=== PATIENT | female | born 1980 | race Caucasian/White ===

== ENCOUNTER → 2016-11-17 | Outpatient (CLI) | payer OTHER ==
[~2016-11-17] MED LIST: ASPIRIN E.C. 8181 MG PO; D-1000 185 MG-11 TAB PO; HCTZ 25MG25 MG PO; LISINOPRIL10 MG PO; MACROBID 100 M100 MG PO; POTASSIUM CH2 MEQ/ML; SYNTHROID0.15 MG PO; TOPAMAX25 MG PO; VENLAFAXINE HYD25 MG PO
== END ==
LOC: LAB 12:28
DX: R07.9 Chest pain, unspecified (principal)

== ENCOUNTER 2016-12-13 20:56 | Emergency (ER) | payer OTHER ==
[~2016-12-13 20:56] MED LIST changes: -MACROBID 100 M100 MG PO
[2016-12-14] MEDS ORDERED: MACROBID 100 M100 MG PO (07:16)
== END 2016-12-14 07:39 | disposition home or self-care (01) ==
LOC: ED 20:56
DX: E87.6 Hypokalemia (principal); E86.0 Dehydration; R55 Syncope and collapse; N39.0 Urinary tract infection, site not specified
CPT/HCPCS: J7030

== ENCOUNTER → 2016-12-15 | Outpatient (CLI) | payer OTHER ==
[~2016-12-15] MED LIST changes: +MACROBID 100 M100 MG PO
== END ==
LOC: LAB 08:53
DX: E87.6 Hypokalemia (principal)

== ENCOUNTER → 2017-02-08 | Outpatient (CLI) | payer OTHER ==
[2016-12-14 07:22] VITALS: BP 110/65
== END ==
LOC: LAB 18:20
DX: K65.1 Peritoneal abscess (principal)

== ENCOUNTER 2018-01-23 15:00 | Outpatient (RCR) | payer OTHER ==
[2016-12-14 07:22] VITALS: BP 110/65
== END 2018-04-04 | disposition home or self-care (01) ==
LOC: PT
DX: M25.562 Pain in left knee (principal); S80.02XD Contusion of left knee, subsequent encounter; W01.0XXD Fall on same level from slipping, tripping and stumbling without subsequent striking against object, subsequent encounter

== ENCOUNTER → 2019-01-27 | Outpatient (CLI) | payer BC ==
[2016-12-14 07:22] VITALS: BP 110/65
[2019-01-27 15:08] LABS: D-DIMER 0.37 mg/L FEU (0.15-0.50)
== END ==
LOC: LAB 14:29
PROVIDERS: Family Medicine
DX: R07.9 Chest pain, unspecified (principal)

== ENCOUNTER 2019-09-03 16:49 | Emergency (ER) | payer BC ==
[~2019-09-03] VITALS: Wt 143.1 kg
[~2019-09-03 16:49] MED LIST changes: -D-1000 185 MG-11 TAB PO; -POTASSIUM CH2 MEQ/ML; +POTASSIUM CH2 MEQ/ML PO; -SYNTHROID0.15 MG PO; +SYNTHROID175 MCG PO; -TOPAMAX25 MG PO; +TOPAMAX50 M1 PO; +VITAMIN D50000 UNIT PO
[2019-09-03] MEDS ORDERED: DULOXETINE60 MG PO (17:02)
[2019-09-03] MEDS ORDERED: LATANOPROST 2.2.5 ML OD (17:03)
[2019-09-03] MEDS ORDERED: REMERON15 MG PO (17:03)
[2019-09-03] MEDS ORDERED: RESTORIL30 M1 PO (17:04)
[2019-09-03] MEDS ORDERED: LAMOTRIGINE25 M1 PO (17:05)
[2019-09-03] MEDS ORDERED: BUTALBITAL, ACE1 TA1 PO (17:06)
[2019-09-03] MEDS ORDERED: RT ALBUTEROL CC18 GM IH (17:08)
[2019-09-03] MEDS ORDERED: MECLIZINE PO (17:08)
[2019-09-03 17:56] LABS: BASO # 0.1 (0.02-0.10); EOS # 0.5 (0.04-0.40); EOS % 5.5 % (1.0-5.0); HEMATOCRIT 39.5 % (37.0-47.0); HEMOGLOBIN 13.3 g/dL (12.5-16.0); LYMPH# 2.8 (1.50-4.00); MEAN CELL VOLUME 90 fl (78-100); MEAN CORPUSCULAR HEMOGLOBIN 30 pg (27-31); MEAN CORPUSCULAR HGB CONC 34 g/dL (33-37); MEAN PLATELET VOLUME 9.9 fl (7.4-10.4); MONO # 0.6 (0.20-0.80); NEU # 4.9 (1.40-6.50); PLATELET COUNT 208 K/mm3 (130-400); RED BLOOD COUNT 4.37 M/mm3 (4.10-5.30); RED CELL DISTRIBUTION WIDTH 14.9 % (11.5-14.5); WHITE BLOOD COUNT 8.9 K/mm3 (4.8-10.8)
[2019-09-03 18:05] LABS: ALBUMIN 3.9 g/dL (3.5-5.0); POTASSIUM 3.7 mmol/L (3.5-5.1); SODIUM 137 mmol/L (136-145)
[2019-09-03 18:06] LABS: CALCIUM 9.3 mg/dL (8.3-10.5)
[2019-09-03 18:07] LABS: GLUCOSE 150 mg/dL (65-105)
[2019-09-03 18:08] LABS: TOTAL PROTEIN 6.9 g/dL (6.4-8.3)
[2019-09-03 18:09] LABS: CARBON DIOXIDE 24 mmol/L (22-29); TOTAL BILIRUBIN 0.4 mg/dL (0.2-1.2)
[2019-09-03 18:13] LABS: AST-SGOT 32 U/L (5-34)
[2019-09-03 18:14] LABS: ALT/SGPT 34 U/L (0-55)
[2019-09-03 18:20] LABS: TROPONIN-I < 0.03 ng/mL (<0.030)
[2019-09-03 20:13] LABS: URINE APPEARANCE CLEAR; URINE BILIRUBIN NEGATIVE (NEGATIVE); URINE BLOOD TRACE (NEGATIVE); URINE COLOR YWLLOW; URINE GLUCOSE NEGATIVE (NEGATIVE); URINE KETONE NEGATIVE (NEGATIVE); URINE LEUKOCYTE ESTERASE NEGATIVE (NEGATIVE); URINE NITRATE NEGATIVE (NEGATIVE); URINE PROTEIN(semi-quant) NEGATIVE (NEGATIVE); URINE UROBILINOGEN NORMAL (NORMAL)
[2019-09-03 20:14] LABS: URINE MUCUS PRESENT (NOT PRESENT)
[2019-09-03] MEDS ORDERED: LOPRESSOR 225 MG/TAB PO (22:17)
[2019-09-03 22:24] VITALS: BP 135/81
== END 2019-09-03 22:25 | disposition home or self-care (01) ==
LOC: ED 16:49
PROVIDERS: Physician Assistant
DX: G43.909 Migraine, unspecified, not intractable, without status migrainosus (principal); I16.0 Hypertensive urgency; I10 Essential (primary) hypertension; Z88.1 Allergy status to other antibiotic agents
CPT/HCPCS: J1885; J2270; J2405; J3010; J7030

== ENCOUNTER → 2021-02-26 | Outpatient (CLI) | payer BC ==
[~2021-02-26] MED LIST changes: +BUTALBITAL, ACE1 TA1 PO; +DULOXETINE60 MG PO; +LAMOTRIGINE25 M1 PO; +LATANOPROST 2.2.5 ML OD; +LOPRESSOR 225 MG/TAB PO; +MECLIZINE PO; +REMERON15 MG PO; +RESTORIL30 M1 PO; +RT ALBUTEROL CC18 GM IH
[2021-02-26 09:59] LABS: BASO # 0.05 (0.02-0.10); EOS # 0.24 (0.04-0.40); EOS % 3.1 % (1.0-5.0); HEMATOCRIT 44.4 % (37.0-47.0); HEMOGLOBIN 14.5 g/dL (12.5-16.0); LYMPH# 2.09 (1.50-4.00); MEAN CELL VOLUME 90 fl (78-100); MEAN CORPUSCULAR HEMOGLOBIN 29 pg (27-31); MEAN CORPUSCULAR HGB CONC 33 g/dL (33-37); MEAN PLATELET VOLUME 10.3 fl (7.4-10.4); MONO # 0.38 (0.20-0.80); NEU # 5.03 (1.40-6.50); PLATELET COUNT 257 K/mm3 (130-400); RED BLOOD COUNT 4.95 M/mm3 (4.10-5.30); RED CELL DISTRIBUTION WIDTH 13.6 % (11.5-14.5); WHITE BLOOD COUNT 7.8 K/mm3 (4.8-10.8)
[2021-02-26 10:04] LABS: ALBUMIN 4.3 g/dL (3.5-5.0); POTASSIUM 3.9 mmol/L (3.5-5.1)
[2021-02-26 10:06] LABS: CALCIUM 9.2 mg/dL (8.3-10.5)
[2021-02-26 10:07] LABS: TOTAL PROTEIN 7.5 g/dL (6.4-8.3)
[2021-02-26 10:09] LABS: TOTAL BILIRUBIN 0.9 mg/dL (0.2-1.2)
== END ==
LOC: LAB 08:58
PROVIDERS: Nurse Practitioner
DX: R10.31 Right lower quadrant pain (principal); R31.29 Other microscopic hematuria

== ENCOUNTER → 2021-06-15 | Outpatient (CLI) | payer BC | LOC: RAD 15:32 | DX: K76.0 Fatty (change of) liver, not elsewhere classified (principal); N83.201 Unspecified ovarian cyst, right side; Z90.49 Acquired absence of other specified parts of digestive tract; Z97.5 Presence of (intrauterine) contraceptive device ==

== ENCOUNTER → 2022-06-16 | Outpatient (CLI) | payer BC ==
[2022-06-16 12:42] LABS: BASO # 0.04 K/mm3 (0.02-0.10); EOS # 0.28 K/mm3 (0.04-0.40); EOS % 3.4 % (1.0-5.0); HEMATOCRIT 42.1 % (37.0-47.0); LYMPH# 2.25 K/mm3 (1.50-4.00); MEAN CELL VOLUME 90 fl (78-100); MEAN CORPUSCULAR HEMOGLOBIN 30 pg (27-31); MEAN CORPUSCULAR HGB CONC 33 g/dL (33-37); MEAN PLATELET VOLUME 9.6 fl (7.4-10.4); MONO # 0.46 K/mm3 (0.20-0.80); NEU # 5.19 K/mm3 (1.40-6.50); PLATELET COUNT 270 K/mm3 (130-400); RED BLOOD COUNT 4.69 M/mm3 (4.10-5.30); RED CELL DISTRIBUTION WIDTH 13.2 % (11.5-14.5); WHITE BLOOD COUNT 8.2 K/mm3 (4.8-10.8)
[2022-06-16 12:52] LABS: POTASSIUM 3.7 mmol/L (3.5-5.1)
[2022-06-16 12:53] LABS: CALCIUM 9.6 mg/dL (8.3-10.5)
[2022-06-16 14:16] LABS: ERYTHROCYTE SEDIMENTATION RATE 28 mm/hr (0-20)
== END ==
LOC: LAB 12:07
PROVIDERS: Family Medicine
DX: M54.9 Dorsalgia, unspecified (principal)

== ENCOUNTER 2022-12-13 10:49 | Outpatient (RCR) | payer BC | END 2023-01-12 | disposition home or self-care (01) | LOC: PT | DX: M43.17 Spondylolisthesis, lumbosacral region (principal); M48.061 Spinal stenosis, lumbar region without neurogenic claudication ==

== ENCOUNTER 2023-01-15 08:00 | Outpatient (RCR) | payer BC | END 2023-02-02 09:06 | disposition home or self-care (01) | LOC: PT 08:00 | DX: M43.17 Spondylolisthesis, lumbosacral region (principal); M48.061 Spinal stenosis, lumbar region without neurogenic claudication ==